=== PATIENT | female | born 1990 | race Caucasian/White ===

== ENCOUNTER 2018-11-15 16:07 | Emergency (ER) | payer SELFPAY ==
[~2018-11-15] VITALS: Ht 165.1 cm; Wt 77.3 kg
[2018-11-15 16:13] VITALS: TEMP 98.2
--- NOTE | 2018-11-15 16:52 | NUR ---
ELMER responded to ED consult. The patient's RN reports that the patient just moved here from [place] and states that this incident occured on Thursday. She presented to the ED with injuries. was notified and is interviewing the patient. ELMER updated the Primary Teacher. Primary Teacher to meet with patient. ELMER collaborated with the patient's RN with the information above.
[2018-11-15 16:57] LABS: COLLECTION METHOD CLEAN CATCH
[2018-11-15 17:04] LABS: PH 6 (5-8); SQUAMOUS EPITHELIAL 0-2 /hpf; URINE APPEARANCE Clear; URINE BACTERIA Rare /hpf; URINE BILIRUBIN Negative (NEGATIVE); URINE BLOOD 1+ (NEGATIVE); URINE COLOR Straw; URINE GLUCOSE Negative (NEGATIVE); URINE KETONE Negative (NEGATIVE); URINE LEUKOCYTE ESTERASE Negative (NEGATIVE); URINE NITRATE Negative (NEGATIVE); URINE PROTEIN(semi-quant) Negative (NEGATIVE); URINE RBC 0-2 /hpf; URINE UROBILINOGEN Negative (NEGATIVE)
[2018-11-15] MEDS ORDERED: NORCO 325 MG-51 TAB PO (18:02)
[2018-11-15 18:14] VITALS: BP 138/89; PULSE 75
== END 2018-11-15 18:17 | disposition home or self-care (01) ==
LOC: COL.ER 16:07
PROVIDERS: Emergency Medicine
DX: S05.02XA Injury of conjunctiva and corneal abrasion without foreign body, left eye, initial encounter (principal); S05.01XA Injury of conjunctiva and corneal abrasion without foreign body, right eye, initial encounter; S20.219A Contusion of unspecified front wall of thorax, initial encounter; F17.210 Nicotine dependence, cigarettes, uncomplicated; F12.90 Cannabis use, unspecified, uncomplicated; Y04.8XXA Assault by other bodily force, initial encounter

== ENCOUNTER → 2020-03-25 | Outpatient (REF) ==
[~2020-03-25] MED LIST: NORCO 325 MG-51 TAB PO
== END ==
LOC: COL.LAB 08:09
DX: Z20.828 Contact with and (suspected) exposure to other viral communicable diseases (principal)

== ENCOUNTER → 2020-07-08 | Outpatient (REF) | LOC: ZLAB.WSOH 08:05 | DX: Z20.822 Contact with and (suspected) exposure to COVID-19 (principal) ==

== ENCOUNTER → 2020-08-14 | Outpatient (REF) | LOC: COL.LAB 09:35 | DX: Z20.822 Contact with and (suspected) exposure to COVID-19 (principal) ==

== ENCOUNTER 2021-08-26 14:12 | Outpatient (RCR) | payer OTHER | END 2021-09-19 | disposition home or self-care (01) | LOC: WSOH | DX: Z77.21 Contact with and (suspected) exposure to potentially hazardous body fluids (principal); Y99.0 Civilian activity done for income or pay; F32.A Depression, unspecified ==